=== PATIENT | male | born 1995 | race African-American/Black ===

== ENCOUNTER 2017-05-08 16:14 | Emergency (ER) | payer SELFPAY ==
[~2017-05-08] VITALS: Ht 170.2 cm; Wt 80.0 kg
[2017-05-08 16:35] VITALS: BP 115/75; PULSE 84; RESP 18; TEMP 97.9; O2SAT 100
[2017-05-08 16:50] VITALS: BP 137/75; PULSE 68; RESP 18; O2SAT 99
[2017-05-08] MEDS ORDERED: SODIUM CHLORIDE 0.9% FLUSH 10 ML FLUSH IVF PRN (17:15)
[2017-05-08] MEDS ORDERED: SODIUM CHLOR 0.9% 1000 ML INJ 1,000 ML IV ONE (17:15)
[2017-05-08 17:35] VITALS: O2SAT 98
[2017-05-08 17:37] VITALS: BP_SYST 128; BP_SYST 135; BP_DIAS 74; BP_DIAS 77; PULSE 84
[2017-05-08 17:38] LABS: AUTOMATED NEUTROPHIL # 12.6 TH/MM3 (1.8-7.7); BASOPHIL % 0.3 % (0.0-2.0); EOSINOPHIL % 0.1 % (0.0-4.0); LYMPH % 7.4 % (9.0-44.0); LYMPHOCYTE # 1.1 TH/MM3 (1.0-4.8); MEAN CORPUSCULAR HEMOGLOBIN 30.6 PG (27.0-34.0); MEAN CORPUSCULAR HGB CONC 32.9 % (32.0-36.0); MONO % 5.3 % (0.0-8.0); NEUT % 86.9 % (16.0-70.0); PLATELET COUNT 258 TH/MM3 (150-450); RED BLOOD COUNT 5.38 MIL/MM3 (4.50-5.90); RED CELL DISTRIBUTION WIDTH 12.7 % (11.6-17.2); WHITE BLOOD COUNT 14.5 TH/MM3 (4.0-11.0)
[2017-05-08 17:39] LABS: HEMO FLAGS DIFF FINAL
[2017-05-08 17:46] LABS: CHLORIDE 95 MEQ/L (98-107); POTASSIUM 4.2 MEQ/L (3.5-5.1); SODIUM (NA) 132 MEQ/L (136-145)
[2017-05-08 17:50] LABS: ANION GAP 9 MEQ/L (5-15); BICARBONATE 28.3 MEQ/L (21.0-32.0); BLOOD UREA NITROGEN 21 MG/DL (7-18); MAGNESIUM 2.1 MG/DL (1.5-2.5)
[2017-05-08 17:51] LABS: PROTHROMBIN TIME - PATIENT 11.5 SEC (9.8-11.6)
[2017-05-08 17:53] LABS: ALT (GPT) 53 U/L (12-78); AST (GOT) 65 U/L (15-37); GLOMERULAR FILTRATION RATE 56 ML/MIN (>89)
[2017-05-08 17:55] LABS: TOTAL BILIRUBIN ADULT 0.7 MG/DL (0.2-1.0)
[2017-05-08 17:56] LABS: ALKALINE PHOSPHATASE 63 U/L (45-117)
[2017-05-08 18:08] LABS: CREATINE KINASE 2323 U/L (39-308)
--- NOTE | 2017-05-08 18:11 | RADRPT ---
EXAM DATE/TIME: 05/08/2017 17:38 [facility] COMPARISON: No previous studies available for comparison. INDICATIONS : Chest pain. MEDICAL HISTORY : None. SURGICAL HISTORY : None. ENCOUNTER: Initial ACUITY: 2 days PAIN SCORE: 8/10 LOCATION: Bilateral chest FINDINGS: A single view of the chest demonstrates the lungs to be symmetrically aerated without evidence of mas s, infiltrate or effusion. The cardiomediastinal contours are unremarkable. Osseous structures are intact. CONCLUSION: No evidence of acute cardiopulmonary disease. Clint Dahl MD on May 08, 2017 at 18:09 Board Certified Radiologist. This report was verified electronically.
[2017-05-08 18:20] LABS: CKMB 4.7 NG/ML (0.5-3.6)
--- NOTE | 2017-05-08 19:38 | PD ---
HPI Chief Complaint: General Weakness Time Seen by Provider: 16:43 Travel History International Travel<30 days: No Contact w/Intl Traveler<30days: No Traveled to known affect area: No History of Present Illness HPI 22-year-old male came to the emergency room with history of body wide cramping that is painful and hurts to walk or move. Patient said it started at 11:00 in the morning. He was working at a [email or web address] and this was his first day of the job. Patient says he has been having chest pain for past 2 years that comes and goes. Last night he was having significant chest pain as well. He thought that it was her muscle cramps and he was drinking fluids to keep himself hydrated but the cramping continued. He claims to be otherwise healthy. Vital signs are stable. [facility] Past Medical History Narrative Medical list of his past medical, surgical, social and family history is reviewed from the nursing note. Medical History: Denies Significant Hx ?: Not Past Surgical History Surgical History: No Previous Surgery Social History Alcohol Use: No Tobacco Use: No Substance Use: No Allergies-Medications (Allergen,Severity, Reaction): Coded Allergies: No Known Allergies (Unverified , 05/08/17) Comments No known drug allergies. Reported Meds & Prescriptions Reported Meds & Active Scripts Active No Active Prescriptions or Reported Medications Narrative Medication List of his home medications reviewed from the nursing note. Review of Systems Except as stated in HPI: all other systems reviewed are Neg Physical Exam Narrative GENERAL: Awake, alert, moderate distress SKIN: Focused skin assessment warm/dry. HEAD: Atraumatic. Normocephalic. EYES: Pupils equal and round. No scleral icterus. No injection or drainage. ENT: No nasal bleeding or discharge. Mucous membranes pink and moist. NECK: Trachea midline. No JVD. CARDIOVASCULAR: Regular rate and rhythm. No murmur appreciated. RESPIRATORY: No accessory muscle use. Clear to auscultation. Breath sounds equal bilaterally. GASTROINTESTINAL: Abdomen soft, non-tender, nondistended. Hepatic and splenic margins not palpable. MUSCULOSKELETAL: No obvious deformities. No clubbing. No cyanosis. No edema. NEUROLOGICAL: Awake and alert. No obvious cranial nerve deficits. Motor grossly within normal limits. Normal speech. PSYCHIATRIC: Appropriate mood and affect; insight and judgment normal. Data Data Last Documented VS Vital Signs Date Time Temp Pulse Resp B/P (MAP) Pulse Ox O2 Delivery O2 Flow Rate FiO2 05/08/17 17:37 84 128/74 (92) 135/77 (96) 05/08/17 17:35 98 Room Air 05/08/17 16:50 18 05/08/17 16:35 97.9 Orders Orders Electrocardiogram (05/08/17 17:13) Ckmb (Isoenzyme) Profile (05/08/17 17:13) Complete Blood Count With Diff (05/08/17 17:) Comprehensive Metabolic Panel (05/08/17 17:) Magnesium (Mg) (05/08/17 17:13) Prothrombin Time / Inr (Pt) (05/08/17:13) Troponin I (05/08/17:13) Chest, Single Ap (05/08/17 17:13) Ecg Monitoring (05/08/17:13) Bilateral Bp Monitoring (05/08/17 17:13) Iv Access Insert/Monitor (05/08/17 17:) Oximetry (05/08/17:) Oxygen Administration (05/08/17:13) Sodium Chloride 0.9% Flush (Ns Flush) (05/08/17 17:15) Creatine Kinase (Cpk) (05/08/17 17:13) Sodium Chlor 0.9% 1000 Ml Inj (Ns 1000 M (05/08/17 17:15) CKMB (05/08/17 17:25) CKMB% (05/08/17 17:25) Sodium Chlor 0.9% 1000 Ml Inj (Ns 1000 M (05/08/17 19:45) Admit Order (Ed Use Only) (05/08/17 19:48) Admit To Inpatient (05/08/17 ) Vital Signs (Adult) Q4H (05/08/17 19:48) Activity Oob Ad Emelia (05/08/17 19:48) Security Operations Manager / Telemetry .CONTINUOUS (05/08/17 19:48) Intake + Output MELITA.QSHIFT (05/08/17 19:48) Sodium Chlor 0.9% 1000 Ml Inj (Ns 1000 M (05/08/17 19:48) Sodium Chloride 0.9% Flush (Ns Flush) (05/08/17 20:00) Sodium Chloride 0.9% Flush (Ns Flush) (05/08/17 21:00) Ondansetron Inj (Zofran Inj) (05/08/17 20:00) Acetaminophen (Tylenol) (05/08/17 20:00) Acetamin-Hydrocod 325-5 Mg ([place] 5-325 (05/08/17 20:00) Morphine Inj (Morphine Inj) (05/08/17 20:00) Docusate Sodium-Senna (Sandra-Colace) (05/08/17 21:00) Magnesium Hydroxide Liq (Milk Of Magnesi (05/08/17 20:00) Sennosides (Senokot) (05/08/17 20:00) Bisacodyl Supp (Dulcolax Supp) (05/08/17 20:00) Lactulose Liq (Lactulose Liq) (05/08/17 20:00) Inpatient Certification (05/08/17 ) Labs Laboratory Tests Test 05/08/17 17:25 White Blood Count 14.5 TH/MM3 Red Blood Count 5.38 MIL/MM3 Hemoglobin 16.5 GM/DL Hematocrit 50.0 % Mean Corpuscular Volume 93.0 FL Mean Corpuscular Hemoglobin 30.6 PG Mean Corpuscular Hemoglobin Concent 32.9 % Red Cell Distribution Width 12.7 % Platelet Count 258 TH/MM3 Mean Platelet Volume 8.8 FL Neutrophils (%) (Auto) 86.9 % Lymphocytes (%) (Auto) 7.4 % Monocytes (%) (Auto) 5.3 % Eosinophils (%) (Auto) 0.1 % Basophils (%) (Auto) 0.3 % Neutrophils # (Auto) 12.6 TH/MM3 Lymphocytes # (Auto) 1.1 TH/MM3 Monocytes # (Auto) 0.8 TH/MM3 Eosinophils # (Auto) 0.0 TH/MM3 Basophils # (Auto) 0.0 TH/MM3 CBC Comment DIFF FINAL Differential Comment Prothrombin Time 11.5 SEC Prothromb Time International Ratio 1.0 RATIO Blood Urea Nitrogen 21 MG/DL Creatinine 1.80 MG/DL Random Glucose 76 MG/DL Total Protein 9.4 GM/DL Albumin 5.2 GM/DL Calcium Level 10.3 MG/DL Magnesium Level 2.1 MG/DL Alkaline Phosphatase 63 U/L Aspartate Amino Transf (AST/SGOT) 65 U/L Alanine Aminotransferase (ALT/SGPT) 53 U/L Total Bilirubin 0.7 MG/DL Sodium Level 132 MEQ/L Potassium Level 4.2 MEQ/L Chloride Level 95 MEQ/L Carbon Dioxide Level 28.3 MEQ/L Anion Gap 9 MEQ/L Estimat Glomerular Filtration Rate 56 ML/MIN Total Creatine Kinase 2323 U/L Creatine Kinase MB 4.7 NG/ML Creatine Kinase MB % 0.2 % Troponin I 0.04 NG/ML MDM Medical Decision Making Medical Screen Exam Complete: Yes Emergency Medical Condition: Yes Medical Record Reviewed: Yes Interpretation(s) Twelve-lead EKG was reviewed by me. Normal sinus rhythm, normal axis, nonspecific ST-T wave changes. Heart rate of 71 bpm. Differential Diagnosis Rhabdomyolysis, muscular skeletal pain, dehydration Narrative Course 7:36 PM patient was given IV fluid bolus 1 L. Blood test results came back and his CPK is elevated. I've ordered another liter of IV fluid bolus. Patient should be admitted at least overnight for IV hydration and repeat CPK. Awaiting for the hospitalist call back. Procedures EKG Prior to Arrival: No Diagnosis Primary Impression: Rhabdomyolysis Qualified Codes: M62.82 - Rhabdomyolysis Additional Impressions: Chest pain Qualified Codes: R07.9 - Chest pain, unspecified Renal insufficiency Admitting Information Admitting Physician Requests: Observation Scripts No Active Prescriptions or Reported Meds Nisreen Kingsley MD May 08, 2017 19:37
[2017-05-08] MEDS: SODIUM CHLOR 0.9% 1000 ML INJ 1,000 ML IV ONE (19:45)
[2017-05-08] MEDS ORDERED: SODIUM CHLOR 0.9% 1000 ML INJ 1,000 ML IV SCH (19:48)
[2017-05-08] MEDS ORDERED: LACTULOSE SYRUP 20 GM/30 ML CUP PO PRN (20:00)
[2017-05-08] MEDS ORDERED: ACETAMINOPHEN/HYDROcodone 325 MG/5 MG TAB PO PRN (20:00)
[2017-05-08] MEDS ORDERED: MORPHINE SULFATE 4 MG/ML INJ IV PUSH PRN (20:00)
[2017-05-08] MEDS ORDERED: SODIUM CHLORIDE 0.9% FLUSH 10 ML FLUSH IV FLUSH PRN (20:00)
[2017-05-08] MEDS ORDERED: BISACODYL 10 MG SUPP RECTAL PRN (20:00)
[2017-05-08] MEDS ORDERED: ONDANSETRON HCL 4 MG/2 ML VIAL IVP PRN (20:00)
[2017-05-08] MEDS ORDERED: MAGNESIUM HYDROXIDE SUSP 30 ML CUP PO PRN (20:00)
[2017-05-08] MEDS ORDERED: ACETAMINOPHEN 325 MG TAB PO PRN (20:00)
[2017-05-08] MEDS ORDERED: SENNOSIDES 8.6 MG TAB PO PRN (20:00)
[2017-05-08 20:02] VITALS: BP 142/71; PULSE 72; RESP 20; TEMP 97.8; O2SAT 98
[2017-05-08] MEDS ORDERED: DOCUSATE SODIUM 50 MG/SENNA 8.6 MG TAB PO SCH (21:00)
[2017-05-08] MEDS ORDERED: SODIUM CHLORIDE 0.9% FLUSH 10 ML FLUSH IV FLUSH SCH (21:00)
--- NOTE | 2017-05-09 06:04 | EKG ---
Date Performed: 05/08/2017 Time Performed: 17:38:12 PTAGE: 22 years EKG: Sinus rhythm NORMAL ECG NO PREVIOUS TRACING DOCTOR: Mike Espinosa Interpretating Date/Time 05/09/2017 06:03:23
== END 2017-05-08 20:45 | disposition left against medical advice (07) ==
LOC: PHED 16:14 → UNDOADMIN 19:49 → PHEDA 19:49 → PHED 20:45
DX: M62.82 Rhabdomyolysis (principal); N28.9 Disorder of kidney and ureter, unspecified
CPT/HCPCS: 71010; 80053; 82550; 82552; 83735; 84484; 85025; 85610; 93005; 96360; 99285; J7030

== ENCOUNTER 2017-05-26 23:45 | Emergency (ER) | payer MEDICAID ==
[~2017-05-26] VITALS: Ht 170.2 cm; Wt 84.2 kg
[2017-05-26 23:49] VITALS: BP 156/78; PULSE 56; RESP 18; TEMP 98.3; O2SAT 96
--- NOTE | 2017-05-27 00:37 | RADRPT ---
EXAM DATE/TIME: 05/27/2017 00:14 [facility] COMPARISON: No previous studies available for comparison. INDICATIONS : Right hand, first digit pain after being slammed in a door. MEDICAL HISTORY : None. SURGICAL HISTORY : None. ENCOUNTER: Initial ACUITY: 1 day PAIN SCORE: 8/10 LOCATION: Right hand, first digit. FINDINGS: Three view examination of the right hand demonstrates no soft tissue swelling, dislocation, or fractu re. The carpal bones appear intact. The interphalangeal and metacarpophalangeal joints are intact. Bony mineralization is normal. CONCLUSION: Intact right hand. Clint Dahl MD on May 27, 2017 at 0:35 Board Certified Radiologist. This report was verified electronically.
[2017-05-27] MEDS ORDERED: DICL75TA PO (04:02)
== END 2017-05-27 02:04 | disposition left against medical advice (07) ==
LOC: PHED 23:45
DX: M79.641 Pain in right hand (principal); W23.0XXA Caught, crushed, jammed, or pinched between moving objects, initial encounter; Z53.21 Procedure and treatment not carried out due to patient leaving prior to being seen by health care provider
CPT/HCPCS: 73130; 99281

== ENCOUNTER 2017-05-27 03:26 | Emergency (ER) | payer MEDICAID ==
[~2017-05-27] VITALS: Ht 170.2 cm; Wt 84.0 kg
[2017-05-27 03:30] VITALS: BP 167/85; PULSE 54; RESP 16; TEMP 98.6; O2SAT 100
--- NOTE | 2017-05-27 03:46 | PD ---
HPI Chief Complaint: Injury Time Seen by Provider: 03:38 Travel History International Travel<30 days: No Contact w/Intl Traveler<30days: No Traveled to known affect area: No History of Present Illness HPI 22-year-old [id number] black male presents to emergency Department with complaints of right thumb pain after having a closed in a door earlier yesterday evening. He states that he has had persistent pain and presents to the ER. He claims that he had gone to the emergency Department in [place] earlier this evening but waited several hours and decided to leave without being seen. Patient denies any numbness or tingling. He states the pain is mild to moderate. Worse with movement. He also complains of blood underneath his nail. Not up-to-date with immunizations. [facility] Past Medical History Medical History: Denies Significant Hx Diminished Hearing: No Tetanus Vaccination: > 5 Years Past Surgical History Surgical History: No Previous Surgery Social History Alcohol Use: No Tobacco Use: Yes (3 black and milds per day) Substance Use: No Allergies-Medications (Allergen,Severity, Reaction): Coded Allergies: No Known Allergies (Unverified , 05/27/17) Reported Meds & Prescriptions Reported Meds & Active Scripts Active Diclofenac Sodium DR (Diclofenac Sodium) 75 Mg Tabdr 75 Mg PO BID Review of Systems Except as stated in HPI: all other systems reviewed are Neg Physical Exam Narrative GENERAL: This is a well-nourished, well-developed patient, in no apparent distress. SKIN: No rashes, ecchymoses or lesions. Warm and dry. HEAD: Atraumatic. Normocephalic. EYES: PERRL, EOMI, no discharge or injection. No scleral icterus. EARS: Clear NOSE: Nasal turbinates appear normal. THROAT: Mucosa pink and moist. Airway patent. NECK: Trachea midline. supple, moves head freely. LUNGS: Clear to auscultation. CV: Regular in rhythm. ABDOMEN: Soft nontender. EXT: No clubbing cyanosis. Examination of the right hand reveals pain at the first MCP, first phalanx and IP joint of the thumb. He has tenderness and swelling of the distal phalanx with a subungual hematoma. He has global decreased range of motion but no gross instability. The skin is intact. Mild to moderate swelling. Intact gross sensation. Remainder of the hand is unremarkable. Data Data Last Documented VS Vital Signs Date Time Temp Pulse Resp B/P (MAP) Pulse Ox O2 Delivery O2 Flow Rate FiO2 05/27/17 03:30 98.6 54 16 167/85 (112) 100 Orders Orders Finger ([id number]) (05/27/17 03:40) Acetamin-Hydrocod 325-5 Mg ([place] 5-325 (05/27/17 04:15) MDM Medical Decision Making Medical Screen Exam Complete: Yes Emergency Medical Condition: Yes Medical Record Reviewed: Yes Interpretation(s) Right thumb: Negative for acute fracture. Positive degenerative changes and possible old fracture. Differential Diagnosis MDM: High Differential diagnoses: Fracture, sprain, strain, dislocation, contusion, neurovascular injury Narrative Course X-ray is negative for acute injury. Patient's subungual hematomas trephinated. Patient given one Lortab 5 a grams by mouth for pain. This is right thumb contusion, subungual hematoma Procedures Procedure Narrative Trepanation right thumb subungual hematoma with electrocautery pen Diagnosis Primary Impression: Contusion of right thumb with damage to nail, initial encounter Additional Impression: Subungual hematoma of digit of hand Qualified Codes: S60.10XA - Contusion of unspecified finger with damage to nail, initial encounter Patient Instructions: General Instructions Additional Instructions: Rest. Elevation. Soaked in Epsom salts to 3 times daily. Ice for the next few days. Diclofenac. Follow-up with a primary care doctor or an orthopedist in one week. Med/Other Pt SpecificInfo: Prescription(s) given Scripts Diclofenac Sodium (Diclofenac Sodium DR) 75 Mg Tabdr 75 MG PO BID, #20 TAB 0 Refills Prov: Pauline Winston MD 05/27/17 Disposition: 01 DISCHARGE HOME Condition: Stable Mihai Bo May 27, 2017 03:46
--- NOTE | 2017-05-27 04:00 | RADRPT ---
EXAM DATE/TIME: 05/27/2017 03:35 [facility] COMPARISON: HAND RIGHT COMPLETE ([id number]), May 27, 2017, 0:14. INDICATIONS : Slammed thumb in car door. MEDICAL HISTORY : None. SURGICAL HISTORY : None. ENCOUNTER: Initial ACUITY: 1 day PAIN SCORE: 0/10 LOCATION: Right thumb FINDINGS: No fracture or subluxation seen of the right thumb. 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 1.5 mm corticated ossicle seen volar to the interphalangeal joint, likely a anato mita variant sesamoid but could be related to old trauma. I don't see an acute fracture fragment. No r adiopaque foreign body. CONCLUSION: No acute fracture demonstrated of the right thumb. Clint Dahl MD on May 27, 2017 at 3:57 Board Certified Radiologist. This report was verified electronically.
[2017-05-27] MEDS ORDERED: DICL75TA PO (04:02)
[2017-05-27] MEDS ORDERED: ACETAMINOPHEN/HYDROcodone 325 MG/5 MG TAB PO ONE (04:15)
== END 2017-05-27 05:01 | disposition home or self-care (01) ==
LOC: NEPD 03:26
DX: S60.011A Contusion of right thumb without damage to nail, initial encounter (principal); F17.200 Nicotine dependence, unspecified, uncomplicated; W23.0XXA Caught, crushed, jammed, or pinched between moving objects, initial encounter
CPT/HCPCS: 11740; 73140